=== PATIENT | female | born 1990 | race Caucasian/White ===

== ENCOUNTER 2018-06-22 18:30 | Emergency (ER) | payer OTHER ==
--- NOTE | 2018-06-22 18:58 | PDOC ---
Rapid Medical Evaluation Time Seen by Provider: 06/22/18 18:55 Medical Evaluation: 06/22/18 18:55 I have performed a brief in-person evaluation of this patient. The patient presents with a chief complaint of: sent by PMD for evaluation of facial droop Pertinent physical exam findings: left sided facial droop. decreased sensation to left side of face. strength 5/5 BUE. No sensation loss to BUE. I have ordered the following: nothing The patient will proceed to the ED for further evaluation. Discharge Disposition - Diagnosis Santiago's palsy - Referrals - Patient Instructions - Post Discharge Activity
[2018-06-22 18:59] VITALS: BP 130/67; PULSE 83; TEMP 98.2; BMI 46.0
[2018-06-22] MEDS ORDERED: ACETAMINOPHEN 500 MG TABLET (FP) PO ONE (20:17)
[2018-06-22] MEDS ORDERED: ACETAMINOPHEN 325 MG TABLET (FP) ONE (20:18)
--- NOTE | 2018-06-22 21:05 | PDOC ---
History of Present Illness - General Chief Complaint: Facial Droop Stated Complaint: PCP SENT/[facility] Time Seen by Provider: 06/22/18 18:55 - History of Present Illness Initial Comments: 06/22/18 21:01 28-year-old female with right-sided facial droop 8 days without systemic symptoms Past History - Past Medical History Allergies/Adverse Reactions: Allergies Allergy/AdvReac Type Severity Reaction Status Date / Time No Known Allergies Allergy Verified 06/22/18 20:21 Home Medications: Ambulatory Orders NK [No Known Home Medication] 06/22/18 COPD: No - Immunization History Immunization Up to Date: Yes - Suicide/Smoking/Psychosocial Hx Smoking History: Current every day smoker Number of Cigarettes Smoked Daily: 2 Information on smoking cessation initiated: No Hx Alcohol Use: No Drug/Substance Use Hx: Yes (MARIJUANA) Review of Systems - Review of Systems Neurological: Yes: See HPI *Physical Exam - Vital Signs Last Vital Signs Temp Pulse Resp BP Pulse Ox 98.2 F 83 16 130/67 99 06/22/18 18:56 06/22/18 18:56 06/22/18 18:56 06/22/18 18:56 06/22/18 18:56 - Physical Exam Comments: 06/22/18 21:02 HEAD: NC/AT his left-sided facial droop with smiling EYES: Conjuntiva clear Ears: Canals and TM's normal NOSE: No d/c THROAT: Moist mucous membrances, oral pharanx clear, uvula midline NECK: Supple without adenopathy CARDIAC: S1 S2 LUNGS: CTA Full and Equal breath sounds ABDOMEN: Soft NT ND MS: Full ROM in all joints without edema NEUROLOGIC: No gross sensory or motor deficits, NVID SKIN: Normal color and temperature no lesions or rashes Moderate Sedation - Procedure Monitoring Vital Signs: Procedure Monitoring Vital Signs Temperature 98.2 F 06/22/18 18:56 Pulse Rate 83 06/22/18 18:56 Respiratory Rate 16 06/22/18 18:56 Blood Pressure 130/67 06/22/18 18:56 O2 Sat by Pulse Oximetry (%) 99 06/22/18 18:56 ED Treatment Course - Medications Given in the ED: ED Medications Discontinued Medications Generic Name Dose Route Start Last Admin Trade Name Freq PRN Reason Stop Dose Admin Acetaminophen 975 mg 06/22/18 20:17 06/22/18 20:22 Tylenol - PO 06/22/18 20:18 975 mg ONCE ONE Administration Medical Decision Making - Medical Decision Making 06/22/18 21:04 no steroids >72 hours post onset of symptoms *DC/Admit/Observation/Transfer Diagnosis at time of Disposition: Rodriguez's palsy - Discharge Dispostion Disposition: HOME Condition at time of disposition: Stable Decision to Admit order: No - Referrals Referrals: Lori Hammer MD [Staff Physician] - - Patient Instructions Printed Discharge Instructions: DI for Rodriguez's Palsy, Rodriguez's Palsy Additional Instructions: Return to the emergency room should symptoms worsen or go unresolved please follow-up with the primary care physician in one to 2 days for further evaluation and treatment options. - Post Discharge Activity
== END 2018-06-22 21:17 | disposition home or self-care (01) ==
LOC: JERFT 18:30
DX: G51.0 Bell's palsy (principal); F17.210 Nicotine dependence, cigarettes, uncomplicated
CPT/HCPCS: 99281-25